=== PATIENT | female | born 1995 | race African-American/Black ===

== ENCOUNTER 2016-08-03 10:39 | Emergency (ER) | payer MEDICAID ==
[~2016-08-03] VITALS: Ht 165.1 cm; Wt 48.0 kg
[~2016-08-03 10:39] MED LIST: [UNRECOGNIZED DRUG - OTHER]
[2016-08-03 12:00] VITALS: BP 128/76
== END 2016-08-03 14:27 | disposition home or self-care (01) ==
LOC: ER 11:57
DX: S39.012A Strain of muscle, fascia and tendon of lower back, initial encounter (principal); V43.52XA Car driver injured in collision with other type car in traffic accident, initial encounter; Y93.89 Activity, other specified; Y92.414 Local residential or business street as the place of occurrence of the external cause; R03.0 Elevated blood-pressure reading, without diagnosis of hypertension
CPT/HCPCS: 99282

== ENCOUNTER 2017-03-01 11:18 | Emergency (ER) | payer MEDICAID ==
[~2017-03-01] VITALS: Ht 165.1 cm; Wt 49.0 kg
[2017-03-01 11:39] VITALS: BP 118/84
== END 2017-03-01 17:23 | disposition left against medical advice (07) ==
LOC: ER 14:10
DX: R42 Dizziness and giddiness (principal); R11.2 Nausea with vomiting, unspecified; Z53.21 Procedure and treatment not carried out due to patient leaving prior to being seen by health care provider

== ENCOUNTER 2017-04-06 22:39 | Emergency (ER) | payer MEDICAID ==
[~2017-04-06] VITALS: Ht 165.1 cm; Wt 55.0 kg
[2017-04-07] MEDS: SODIUM CHLORIDE 0.9% 1,000 ML IV ONE (03:19)
[2017-04-07] MEDS: KETOROLAC 30MG/ML VIAL IV STA (03:19)
[2017-04-07] MEDS: ONDANSETRON HCL 4MG/2ML VIAL IV STA (03:19)
[2017-04-07 03:22] LABS: BASOPHILS % 0.5 % (0.0-2.0); EOSINOPHILS % 1.1 % (0.0-5.0); HEMATOCRIT. 37.6 % (36.0-48.0); HEMOGLOBIN. 12.5 g/dL (12.0-16.0); LYMPHOCYTES % 15.2 % (20.0-50.0); MEAN CORPUSCULAR HEMOGLOBIN 27.8 pg (28.0-32.0); MEAN CORPUSCULAR VOLUME 83.9 fL (81.0-99.0); MONOCYTES % 6.4 % (2.0-8.0); NEUTROPHILS % 76.8 % (40.0-76.0); PLATELET 195 x1000/uL (130-400); RED BLOOD CELL COUNT 4.49 mill/uL (4.2-5.4); RED CELL DISTRIBUTION WIDTH 13.9 % (11.6-14.6)
[2017-04-07 03:47] LABS: CARBON DIOXIDE 27 mEq/L (21-32); CHLORIDE 103 mEq/L (98-107)
[2017-04-07 05:17] LABS: CLARITY URINE CLOUDY (CLEAR); COLOR URINE YELLOW (YELLOW); GLUCOSE URINE NEGATIVE (NEGATIVE); KETONES URINE 2+ (NEGATIVE); LEUKOCYTE ESTERASE URINE 1+ (NEGATIVE); NITRITE URINE NEGATIVE (NEGATIVE); OCCULT BLOOD URINE NEGATIVE (NEGATIVE); PROTEIN URINE NEGATIVE (NEGATIVE); SPECIFIC GRAVITY URINE 1.017 (1.005-1.030)
[2017-04-07 06:16] VITALS: BP 120/73
== END 2017-04-07 06:28 | disposition home or self-care (01) ==
LOC: ER 23:29
DX: N39.0 Urinary tract infection, site not specified (principal); J06.9 Acute upper respiratory infection, unspecified; J45.909 Unspecified asthma, uncomplicated
CPT/HCPCS: 36415; 80053; 81001; 81025; 83690; 85025; 96361; 96374; 96375; 99285; J1885; J2405; J7030; Z7610

== ENCOUNTER 2018-04-16 11:03 | Emergency (ER) | payer MEDICAID ==
[~2018-04-16] VITALS: Ht 165.1 cm; Wt 51.0 kg
[2018-04-16 11:05] VITALS: BP 117/64
== END 2018-04-16 12:38 | disposition home or self-care (01) ==
LOC: ER 11:03
DX: J06.9 Acute upper respiratory infection, unspecified (principal); F17.200 Nicotine dependence, unspecified, uncomplicated; J45.909 Unspecified asthma, uncomplicated
CPT/HCPCS: 87804; 99283

== ENCOUNTER 2018-05-25 20:00 | Emergency (ER) | payer MEDICAID ==
[~2018-05-25] VITALS: Ht 165.1 cm; Wt 50.0 kg
[2018-05-25 22:23] VITALS: BP 114/70
== END 2018-05-25 22:23 | disposition home or self-care (01) ==
LOC: ER 20:00
DX: J06.9 Acute upper respiratory infection, unspecified (principal); J45.909 Unspecified asthma, uncomplicated; F17.210 Nicotine dependence, cigarettes, uncomplicated
CPT/HCPCS: 71045; 81025; 87804; 99284; 99406

== ENCOUNTER 2018-06-08 22:13 | Emergency (ER) | payer MEDICAID ==
[~2018-06-08] VITALS: Ht 165.1 cm; Wt 50.0 kg
[2018-06-08 22:18] VITALS: BP 118/66
== END 2018-06-09 00:02 | disposition left against medical advice (07) ==
LOC: ER 22:13
DX: Z53.21 Procedure and treatment not carried out due to patient leaving prior to being seen by health care provider (principal)

== ENCOUNTER 2019-01-25 16:02 | Emergency (ER) | payer MEDICAID ==
[~2019-01-25] VITALS: Ht 165.1 cm; Wt 54.0 kg
[2019-01-25] MEDS ORDERED: ONDANSETRON 4MG ODT PO ONE (22:30)
[2019-01-25 23:12] LABS: CLARITY URINE TURBID (CLEAR); COLOR URINE YELLOW (YELLOW); KETONES URINE TRACE (NEGATIVE); LEUKOCYTE ESTERASE URINE 2+ (NEGATIVE); NITRITE URINE NEGATIVE (NEGATIVE); OCCULT BLOOD URINE NEGATIVE (NEGATIVE); PH URINE 5.5 (4.5-8.0); PROTEIN URINE TRACE (NEGATIVE); SPECIFIC GRAVITY URINE 1.027 (1.005-1.030)
[2019-01-25 23:45] VITALS: BP 118/70
[2019-01-25] MEDS ORDERED: IBUPROFEN 600MG TABLET PO SCH (23:45)
[2019-01-25] MEDS ORDERED: CEPHALEXIN 250MG CAPSULE PO SCH (23:45)
== END 2019-01-26 | disposition home or self-care (01) ==
LOC: ER 16:02
DX: N39.0 Urinary tract infection, site not specified (principal); R11.2 Nausea with vomiting, unspecified; F17.200 Nicotine dependence, unspecified, uncomplicated
CPT/HCPCS: 81003; 81025; 82962; 99283; Q0162

== ENCOUNTER 2019-06-26 22:58 | Emergency (ER) | payer MEDICAID ==
[~2019-06-26] VITALS: Ht 165.1 cm; Wt 52.0 kg
[2019-06-27] MEDS ORDERED: ACETAMINOPHEN WITH CODEINE 300/30MG TABLET PO ONE (01:45)
[2019-06-27 03:35] LABS: BASOPHILS % 0.3 % (0.0-2.0); EOSINOPHILS % 3.8 % (0.0-5.0); HEMATOCRIT. 38.3 % (36.0-48.0); HEMOGLOBIN. 12.6 g/dL (12.0-16.0); LYMPHOCYTES % 29.9 % (20.0-50.0); MEAN CORPUSCULAR HEMOGLOBIN 28.6 pg (28.0-32.0); MEAN CORPUSCULAR VOLUME 87.1 fL (81.0-99.0); MEAN PLATELET VOLUME 7.7 fl (7.4-10.4); MONOCYTES % 6.2 % (2.0-8.0); NEUTROPHILS % 59.8 % (40.0-76.0); PLATELET 199 x1000/uL (130-400); RED CELL DISTRIBUTION WIDTH 13.6 % (11.6-14.6)
[2019-06-27 03:40] LABS: CHLORIDE 106 mEq/L (98-107)
[2019-06-27 03:49] LABS: B-HCG QUANTITATIVE 2 mIU/mL (<3)
[2019-06-27 03:57] LABS: CLARITY URINE CLEAR (CLEAR); COLOR URINE YELLOW (YELLOW); KETONES URINE NEGATIVE (NEGATIVE); PH URINE 6.5 (4.5-8.0); PROTEIN URINE NEGATIVE (NEGATIVE); SPECIFIC GRAVITY URINE 1.016 (1.005-1.030)
[2019-06-27 03:58] LABS: LEUKOCYTE ESTERASE URINE 2+ (NEGATIVE); NITRITE URINE NEGATIVE (NEGATIVE); OCCULT BLOOD URINE 3+ (NEGATIVE)
[2019-06-27 06:04] VITALS: BP 128/74
== END 2019-06-27 05:55 | disposition home or self-care (01) ==
LOC: ER 22:58
DX: S36.13XA Injury of bile duct, initial encounter (principal); N94.6 Dysmenorrhea, unspecified; R10.9 Unspecified abdominal pain; X58.XXXA Exposure to other specified factors, initial encounter; Y99.8 Other external cause status; Y93.89 Activity, other specified; Y92.89 Other specified places as the place of occurrence of the external cause
CPT/HCPCS: 36415; 72100; 76830; 76856; 80048; 81003; 81025; 84702; 85025; 86850; 86900; 99285

== ENCOUNTER 2020-04-30 15:14 | Emergency (ER) | payer MEDICAID ==
[~2020-04-30] VITALS: Ht 165.1 cm; Wt 50.0 kg
[2020-04-30] MEDS ORDERED: TRAMADOL 50MG TABLET PO ONE (18:15)
[2020-04-30] MEDS ORDERED: TETANUS, DIPHTHERIA, PERTUSSIS VAC/PF 0.5ML (>7YR OLD) IM ONE (18:15)
[2020-04-30 18:32] VITALS: BP 118/72
[2020-04-30 18:41] LABS: METHADONE URINE SCREEN NEGATIVE (NEGATIVE); PHENCYCLIDINE URINE SCREEN NEGATIVE (NEGATIVE)
[2020-04-30 18:42] LABS: *AMPHETAMINES SCREEN URINE NEGATIVE (NEGATIVE); *BARBITURATES SCREEN URINE NEGATIVE (NEGATIVE); *BENZODIAZEPINES SCREEN URINE NEGATIVE (NEGATIVE); *COCAINE SCREEN URINE NEGATIVE (NEGATIVE)
[2020-04-30 18:50] LABS: OPIATES URINE SCREEN NEGATIVE (NEGATIVE)
[2020-04-30 18:52] LABS: CANNABINOID URINE SCREEN PRESUMTIVE POSITIVE (NEGATIVE)
== END 2020-04-30 18:39 | disposition home or self-care (01) ==
LOC: ER 15:14
DX: S00.83XA Contusion of other part of head, initial encounter (principal); M79.644 Pain in right finger(s); Y04.0XXA Assault by unarmed brawl or fight, initial encounter; Y93.89 Activity, other specified; Y92.89 Other specified places as the place of occurrence of the external cause; Y99.8 Other external cause status
CPT/HCPCS: 70486; 73130; 80305; 90471; 90715; 99285

== ENCOUNTER 2020-11-07 18:55 | Emergency (ER) | payer MEDICAID ==
[~2020-11-07] VITALS: Ht 157.5 cm; Wt 60.0 kg
[2020-11-07] MEDS ORDERED: IBUP-2028 MT (22:59)
[2020-11-07] MEDS ORDERED: PENI500T MT (22:59)
[2020-11-07 23:14] VITALS: BP 125/84
== END 2020-11-07 23:15 | disposition home or self-care (01) ==
LOC: ER 18:55
DX: J02.9 Acute pharyngitis, unspecified (principal); R07.89 Other chest pain; R05 Cough; R03.0 Elevated blood-pressure reading, without diagnosis of hypertension
CPT/HCPCS: 71045; 81025; 93005; 99283

== ENCOUNTER 2021-08-26 15:18 | Emergency (ER) | payer MEDICAID ==
[~2021-08-26] VITALS: Ht 165.1 cm; Wt 50.0 kg
[~2021-08-26 15:18] MED LIST changes: +IBUP-2028 MT; +PENI500T MT; -[UNRECOGNIZED DRUG - OTHER]
[2021-08-26 16:12] LABS: BASOPHILS % 0.8 % (0.0-2.0); HEMATOCRIT. 40.3 % (36.0-48.0); HEMOGLOBIN. 13.2 g/dL (12.0-16.0); MEAN CORPUSCULAR HEMOGLOBIN 30.1 pg (28.0-32.0); MEAN CORPUSCULAR VOLUME 92.1 fL (81.0-99.0); MEAN PLATELET VOLUME 7.1 fl (7.4-10.4); MONOCYTES % 5.7 % (2.0-8.0); NEUTROPHILS % 47.5 % (40.0-76.0); PLATELET 218 x1000/uL (130-400); RED BLOOD CELL COUNT 4.38 mill/uL (4.2-5.4); RED CELL DISTRIBUTION WIDTH 13.5 % (11.6-14.6)
[2021-08-26 16:21] LABS: CHLORIDE 107 mEq/L (98-107)
[2021-08-26 16:26] LABS: ETHANOL BLOOD < 10 mg/dL
[2021-08-26] MEDS ORDERED: LORAZEPAM 2MG/ML CPJ IM ONE (16:30)
[2021-08-26] MEDS ORDERED: HALOPERIDOL LACTATE 5MG/ML VIAL IM ONE (16:30)
[2021-08-26 16:38] LABS: HCG SCREEN NEGATIVE
[2021-08-26] MEDS ORDERED: SODIUM CHLORIDE 0.9% 1,000 ML IV ONE (19:00)
[2021-08-26 21:00] LABS: CLARITY URINE CLOUDY (CLEAR); COLOR URINE YELLOW (YELLOW); KETONES URINE NEGATIVE (NEGATIVE); LEUKOCYTE ESTERASE URINE 1+ (NEGATIVE); NITRITE URINE NEGATIVE (NEGATIVE); OCCULT BLOOD URINE TRACE (NEGATIVE); PROTEIN URINE NEGATIVE (NEGATIVE); SPECIFIC GRAVITY URINE 1.022 (1.005-1.030)
[2021-08-26 21:35] LABS: *BARBITURATES SCREEN URINE NEGATIVE (NEGATIVE); *BENZODIAZEPINES SCREEN URINE NEGATIVE (NEGATIVE); *COCAINE SCREEN URINE NEGATIVE (NEGATIVE); METHADONE URINE SCREEN NEGATIVE (NEGATIVE); OPIATES URINE SCREEN NEGATIVE (NEGATIVE); PHENCYCLIDINE URINE SCREEN NEGATIVE (NEGATIVE)
[2021-08-26 21:38] LABS: *AMPHETAMINES SCREEN URINE PRESUMTIVE POSITIVE (NEGATIVE); CANNABINOID URINE SCREEN PRESUMTIVE POSITIVE (NEGATIVE)
[2021-08-26] MEDS: METRONIDAZOLE 500MG TABLET PO SCH (22:00)
[2021-08-27] MEDS: METRONIDAZOLE 500MG TABLET PO SCH (06:16)
[2021-08-27 08:40] VITALS: BP 109/65
[2021-08-27] MEDS ORDERED: METR-167 MT (09:47)
== END 2021-08-27 10:35 | disposition home or self-care (01) ==
LOC: ER 15:18
DX: R45.851 Suicidal ideations (principal); F33.2 Major depressive disorder, recurrent severe without psychotic features; F15.10 Other stimulant abuse, uncomplicated; F11.10 Opioid abuse, uncomplicated; F12.10 Cannabis abuse, uncomplicated; R45.1 Restlessness and agitation; A59.9 Trichomoniasis, unspecified; F90.9 Attention-deficit hyperactivity disorder, unspecified type; R94.31 Abnormal electrocardiogram [ECG] [EKG]; Z20.822 Contact with and (suspected) exposure to COVID-19; Z91.51 Personal history of suicidal behavior; Z91.14 Patient's other noncompliance with medication regimen
CPT/HCPCS: 36415; 80053; 80305; 80307; 80320; 80329; 81003; 84703; 85025; 93005; 96372; 99285; C9803; J1630; J2060; J7030; U0003; U0005; Z7610; G0480

== ENCOUNTER 2021-09-30 00:44 | Emergency (ER) | payer MEDICAID ==
[~2021-09-30] VITALS: Ht 167.6 cm; Wt 66.0 kg
[~2021-09-30 00:44] MED LIST changes: +METR-167 MT
[2021-09-30 00:47] VITALS: BP 126/70
[2021-09-30] MEDS ORDERED: IBUPROFEN 600MG TABLET PO ONE (04:45)
[2021-09-30] MEDS ORDERED: TETANUS, DIPHTHERIA, PERTUSSIS VAC/PF 0.5ML (>10YR OLD) IM ONE (04:45)
[2021-09-30] MEDS ORDERED: TOPUD MT (05:39)
== END 2021-09-30 07:10 | disposition home or self-care (01) ==
LOC: ER 00:44
DX: M25.562 Pain in left knee (principal); Z98.890 Other specified postprocedural states; Y04.0XXA Assault by unarmed brawl or fight, initial encounter; Y93.89 Activity, other specified; Y92.89 Other specified places as the place of occurrence of the external cause; Y99.8 Other external cause status
CPT/HCPCS: 73562; 99283

== ENCOUNTER 2022-11-27 10:03 | Emergency (ER) | payer MEDICAID ==
[~2022-11-27] VITALS: Ht 165.1 cm; Wt 72.0 kg
[~2022-11-27 10:03] MED LIST changes: +TOPUD MT
[2022-11-27] MEDS ORDERED: LIDOCAINE HCL 1% 20ML VIAL (Pyxis) INJ INFIL ONE (11:15)
[2022-11-27 12:45] VITALS: BP 122/78; PULSE 80; RESP 18; TEMP 98.7
[2022-11-27] MEDS ORDERED: BACITRACIN ZINC OINT UDPKT TOP NR (12:45)
== END 2022-11-27 13:05 | disposition home or self-care (01) ==
LOC: ER 10:27
DX: S61.412A Laceration without foreign body of left hand, initial encounter (principal); Z98.890 Other specified postprocedural states; W25.XXXA Contact with sharp glass, initial encounter; Y93.89 Activity, other specified; Y92.89 Other specified places as the place of occurrence of the external cause; Y99.8 Other external cause status
CPT/HCPCS: 73130; 12002; 99283; J3490; Z7610 ×2

== ENCOUNTER 2022-11-29 16:19 | Emergency (ER) | payer MEDICAID ==
[~2022-11-29] VITALS: Ht 167.6 cm; Wt 53.0 kg
[2022-11-29 16:52] VITALS: BP 132/76; PULSE 79; RESP 20; TEMP 97.9; O2SAT 100
== END 2022-11-29 18:31 | disposition home or self-care (01) ==
LOC: ER 16:19
DX: S61.412D Laceration without foreign body of left hand, subsequent encounter (principal); D64.9 Anemia, unspecified; F41.9 Anxiety disorder, unspecified; F32.9 Major depressive disorder, single episode, unspecified; X58.XXXD Exposure to other specified factors, subsequent encounter
CPT/HCPCS: 99281

== ENCOUNTER 2023-04-26 11:54 | Emergency (ER) | payer MEDICAID ==
[~2023-04-26] VITALS: Ht 165.1 cm; Wt 70.0 kg
[~2023-04-26 11:54] MED LIST changes: +CEPH500C2 MT
[2023-04-26 12:10] VITALS: BP 122/78; TEMP 98.9; O2SAT 100
[2023-04-26] MEDS ORDERED: IPRATROPIUM/ALBUTEROL 0.5-3(2.5)MG/3ML NEB HHN ONE (14:30)
[2023-04-26] MEDS ORDERED: DEXAMETHASONE 10 MG/ML VIAL PO ONE (14:30)
[2023-04-26 15:22] VITALS: PULSE 80; RESP 22
[2023-04-26] MEDS ORDERED: PROM6.2527 MT (15:42)
== END 2023-04-26 16:01 | disposition home or self-care (01) ==
LOC: ER 11:54
DX: J06.9 Acute upper respiratory infection, unspecified (principal); D64.9 Anemia, unspecified; F41.9 Anxiety disorder, unspecified; F32.9 Major depressive disorder, single episode, unspecified; Z79.899 Other long term (current) drug therapy
CPT/HCPCS: 94640; 99283; J1100; Z7610 ×3

== ENCOUNTER 2023-05-29 21:01 | Emergency (ER) | payer MEDICAID ==
[~2023-05-29] VITALS: Ht 165.1 cm; Wt 52.0 kg
[~2023-05-29 21:01] MED LIST changes: +PROM6.2527 MT
[2023-05-29 21:07] VITALS: BP 122/95; PULSE 111; RESP 18; TEMP 98.5; O2SAT 100
== END 2023-05-29 21:50 | disposition left against medical advice (07) ==
LOC: ER 21:01
DX: T76.21XA Adult sexual abuse, suspected, initial encounter (principal); Z53.21 Procedure and treatment not carried out due to patient leaving prior to being seen by health care provider
CPT/HCPCS: 99281

== ENCOUNTER 2023-08-26 16:35 | Emergency (ER) | payer MEDICAID ==
[~2023-08-26] VITALS: Ht 162.6 cm; Wt 61.0 kg
[2023-08-26 16:40] VITALS: BP 120/77; PULSE 94; RESP 20; TEMP 98.1; O2SAT 98
== END 2023-08-26 23:03 | disposition left against medical advice (07) ==
LOC: ER 16:35
DX: S61.411A Laceration without foreign body of right hand, initial encounter (principal); Z53.21 Procedure and treatment not carried out due to patient leaving prior to being seen by health care provider; X58.XXXA Exposure to other specified factors, initial encounter; Y93.89 Activity, other specified; Y92.89 Other specified places as the place of occurrence of the external cause; Y99.8 Other external cause status
CPT/HCPCS: 99281

== ENCOUNTER 2023-10-23 09:36 | Emergency (ER) | payer MEDICAID ==
[~2023-10-23] VITALS: Ht 165.1 cm; Wt 52.0 kg
[2023-10-23 09:41] VITALS: BP 122/78; PULSE 84; RESP 18; TEMP 97.9; O2SAT 99
[2023-10-23] MEDS: BISMUTH SUBSALICYLATE 262 MG/15 ML-120ML BOTTLE PO ONE (10:30)
[2023-10-23 10:35] LABS: BASOPHILS % 0.8 % (0.0-2.0); EOSINOPHILS % 1.7 % (0.0-5.0); HEMATOCRIT. 37.7 % (36.0-48.0); HEMOGLOBIN. 12.8 g/dL (12.0-16.0); LYMPHOCYTES % 38.5 % (20.0-50.0); MEAN CORPUSCULAR HEMOGLOBIN 31.6 pg (28.0-32.0); MEAN PLATELET VOLUME 7.3 fl (7.4-10.4); MONOCYTES % 6.1 % (2.0-8.0); NEUTROPHILS % 52.9 % (40.0-76.0); PLATELET 250 x1000/uL (130-400); RED BLOOD CELL COUNT 4.05 mill/uL (4.2-5.4); RED CELL DISTRIBUTION WIDTH 14.4 % (11.6-14.6)
[2023-10-23 10:41] LABS: CHLORIDE 106 mEq/L (98-107); POTASSIUM 3.4 mEq/L (3.5-5.1); SODIUM 138 mEq/L (136-145)
[2023-10-23 10:42] LABS: CALCIUM 8.9 mg/dL (8.7-10.4); CARBON DIOXIDE 26 mEq/L (21-32)
[2023-10-23 10:47] LABS: CREATININE 0.6 mg/dL (0.6-1.0); GLUCOSE 94 mg/dL (70-105); UREA NITROGEN BLOOD 6 mg/dL (9-23)
[2023-10-23 10:49] LABS: ALANINE AMINOTRANSFERASE 16 IU/L (10-49); ALBUMIN 4.2 g/dL (3.2-4.8); ASPARTATE AMINOTRANSFERASE 28 IU/L (<34); BILIRUBIN DIRECT 0.3 mg/dL (<=3.0); BILIRUBIN TOTAL 0.8 mg/dL (0.1-1.0); HCG SCREEN NEGATIVE; PROTEIN TOTAL 6.7 g/dL (6.0-8.3)
[2023-10-23] MEDS: DICYCLOMINE HCL 10MG CAPSULE PO ONE (10:52)
[2023-10-23 11:52] LABS: CLARITY URINE CLOUDY (CLEAR); COLOR URINE YELLOW (YELLOW); GLUCOSE URINE NEGATIVE (NEGATIVE); KETONES URINE NEGATIVE (NEGATIVE); LEUKOCYTE ESTERASE URINE 1+ (NEGATIVE); NITRITE URINE NEGATIVE (NEGATIVE); OCCULT BLOOD URINE NEGATIVE (NEGATIVE); PROTEIN URINE TRACE (NEGATIVE); SPECIFIC GRAVITY URINE 1.021 (1.005-1.030)
[2023-10-23 12:24] LABS: MUCUS URINE TRACE /lpf (< = 2+); SQUAMOUS EPITHELIAL CELL URINE 3+ /lpf (RARE/1+)
[2023-10-23 12:25] LABS: BACTERIA URINE 2+; TRICHOMONAS URINE 1+
[2023-10-23 12:26] LABS: RBC URINE 0-2 /hpf (0-2)
[2023-10-23] MEDS ORDERED: NITR100C MT (12:45)
[2023-10-23] MEDS ORDERED: CEPH500C2 MT (13:04)
[2023-10-23] MEDS ORDERED: METR-167 MT (14:30)
== END 2023-10-23 13:58 | disposition home or self-care (01) ==
LOC: ER 09:36
DX: A59.9 Trichomoniasis, unspecified (principal); N39.0 Urinary tract infection, site not specified; Z79.899 Other long term (current) drug therapy
CPT/HCPCS: 36415; 80048; 80076; 81003; 84703; 85025; 99283